=== PATIENT | male | born 1965 | race Caucasian/White ===

== ENCOUNTER 2023-09-22 11:32 | Emergency (ER) | payer OTHER, MEDICAID, SELFPAY ==
[2023-09-22] VITALS (8 sets, daily range): BP systolic 102–118; BP diastolic 72–78; PULSE 85–92; RESP 10–18; TEMP 36.6–36.8; O2SAT 94–95
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
--- NOTE | 2023-09-22 13:03 | MHC.CM.ED ---
Addendum entered by April Barger 09/22/23 15:19: [facility] is unable to offer a bed. Addendum entered by April Barger 09/22/23 14:33: Copy of HCP obtained from hospice. Patient has a pre-paid arranged in [place]. Alma filterer will get CM this info. Clinical updates sent to facilities still reviewing: [facility], [facility], [facility], [facility] and [facility]. Patient's sig other/HCP, Shy is currently in [facility] due to angina. Patient's daughter, Riddhi is currently acting as HCP. Original Note: Received notification from [facility] that patient is active with their agency and will be coming into the ER because his family is unable to care for him. Patient arrived to ER. No pain. No agitation. Not GIP admission appropriate at this time. Per hospice, patient was agitated last night and family doesn't feel they can safely care for him at this time. Patient was confused. Placement at a SNF will be pursued under hospice. Referral [facility] in [facility]. Continue to monitor for d/c needs.
--- NOTE | 2023-09-22 13:27 | PHA.MEDREC ---
Pharmacy Consult ? Medication Reconciliation Pharmacy has completed the medication reconciliation with list provided from [facility].
--- NOTE | 2023-09-22 13:35 | MHC.EDTECH ---
T/w and KATHY Mujica changed Pt into hospital gown and repositioned with pillows. Clothing and sandals in belongings bag on back of stretcher.
--- NOTE | 2023-09-22 13:38 | PC.NURSE ---
fentanyl patch 100mcg to upper back. turned, repositioned, pillows placed under side, given fresh gown, new pad. rr 10. no distress. somnolent.
--- NOTE | 2023-09-22 16:32 | MHC.CM.ED ---
[facility] is able to accept a bed. Patient's sig other, Shy accepts bed. MDS completed and sent to [facility]. Patient will need [facility] PASRR Level 2. T/W already submitted for this. Continue to monitor for d/c needs.
--- NOTE | 2023-09-22 17:30 | PC.NURSE ---
called daughter to ask when fentanyl patch last placed. patch placed today mid-morning per daughter.
[2023-09-22] MEDS: Morphine Sulfate Oral Sol 10 MG/5 ML SOLUTION 15 MG PO ×2 (18:13→21:11)
[2023-09-22] MEDS: fentaNYL 100 MCG PATCH.TD72 TRANSDERMA (20:09)
--- NOTE | 2023-09-22 20:10 | PC.NURSE ---
gave fentanyl patch late as originally pt had already had patch on from home but then spoke w pharmacy and said pt needs a new patch when enters hospital. no fentanyl was in pyxis. obtained from [facility] after refilled.
--- NOTE | 2023-09-22 20:13 | PC.NURSE ---
disposed of prior fentanyl patch from pt home with Radha CHAVEZ witness in medication room, wasted securely together.
[2023-09-22] MEDS: methADONE HCl 20 MG/2 ML ORAL.CONC 40 MG PO (21:11)
--- NOTE | 2023-09-22 21:17 | PC.NURSE ---
pt placed in hospital bed reports 8/10 pain medicated per mar tolerated well. requesting a sandwich and cranberry juice.
[2023-09-22] MEDS: dexAMETHasone 4 MG TABLET PO (21:23)
--- NOTE | 2023-09-22 21:27 | PC.NURSE ---
Dr. Alphonse dobbins with pt eating whole foods. pt tolerating well; shree pct at bedside however pt able to feed self.
--- NOTE | 2023-09-23 00:05 | MHC.EDTECH ---
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
[2023-09-23] MEDS: Morphine Sulfate Oral Sol 10 MG/5 ML SOLUTION 15 MG PO ×4 (00:15→11:08)
[2023-09-23 00:22] VITALS: RESP 15
[2023-09-23 01:15] VITALS: PULSE 95; RESP 14
--- NOTE | 2023-09-23 02:21 | PC.NURSE ---
pt awoke groaning heard. pt reported 8/10 pain. po morphine prn given per sep. resp even and unlabored.
[2023-09-23 03:30] VITALS: RESP 14
--- NOTE | 2023-09-23 05:05 | MHC.EDTECH ---
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
[2023-09-23 05:30] VITALS: RESP 14
[2023-09-23 06:05] VITALS: RESP 14
[2023-09-23 06:28] VITALS: RESP 14
--- NOTE | 2023-09-23 07:11 | PC.NURSE ---
pt currently awake/alert to person/place- pt asking why he is at the hospital and requesting to go home, pt currently denying pain, respirations are equal and non labored, pt offered PO and refused. 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
--- NOTE | 2023-09-23 08:24 | MHC.CM.ED ---
Patient remains in ER. [facility] PASRR Level 2 obtained. Waiting for [facility] approval before patient will be able to transfer to [facility]. Continue to monitor for d/c needs.
[2023-09-23] MEDS: methADONE HCl 20 MG/2 ML ORAL.CONC 40 MG PO (08:25)
[2023-09-23] MEDS: polyethylene glycoL 3350 17 GM POWD.PACK PO (08:25)
--- NOTE | 2023-09-23 08:32 | PC.NURSE ---
pharmacy called for missing med
[2023-09-23] MEDS: dexAMETHasone 4 MG TABLET PO (09:25)
--- NOTE | 2023-09-23 11:20 | PC.NURSE ---
patient awake/alert to person/place, hospice nurse at bedside, pt c/o pain- medicated with morphine per order, will continue to monitor.
--- NOTE | 2023-09-23 11:41 | MHC.CM.ED ---
Addendum entered by April Barger 09/23/23 12:50: Per Alma sunday school missionary. Methadone has been ordered and will be delivered tomorrow. [facility] is requesting air mattress. Alma aware and ordering. Unsure of when it will be delivered. Addendum entered by April Barger 09/23/23 12:02: Paper prescriptions for narcotics written by Taylor CARLIN to go with patient from the ER. Per Alma forest management professor, methadone is obtained from a [facility] in [place]. [facility] is requesting Hospice continue to order these meds. Per Alma RN they will continue to get Methadone prescribed and delivered. [facility] will need to accept the delivery of the methadone. Per Janessa at [facility], they will accept the delivery. Maude Trejo, is a aerosol line operator at [facility]. She will be available via telephone at [phone] to help with interpreting if needed. Addendum entered by April Barger 09/23/23 11:57: Patient's daughter, Alma, made aware via telephone at [phone]. Original Note: Patient can leave for [facility] at 1pm. Juan WILLARD booked. Med nec with chart. Patient, Griselda CHAVEZ and Taylor CARLIN aware. Alma RN from [facility] also made aware. Continue to monitor for d/c needs.
--- NOTE | 2023-09-23 13:01 | PC.NURSE ---
called report to [facility] to daniel, ems on site to take pt
== END 2023-09-23 13:25 | disposition skilled nursing facility (03) ==
PROVIDERS: Emergency Provider Emergency Medicine; PCP Internal Medicine
DX: Z51.5 Encounter for palliative care (principal); C34.90 Malignant neoplasm of unspecified part of unspecified bronchus or lung; C79.31 Secondary malignant neoplasm of brain; C79.70 Secondary malignant neoplasm of unspecified adrenal gland; C79.00 Secondary malignant neoplasm of unspecified kidney and renal pelvis; Z79.891 Long term (current) use of opiate analgesic; Z79.899 Other long term (current) drug therapy
CPT/HCPCS: 99284; 99285; J8540